=== PATIENT | male | born 1985 | race Caucasian/White ===

== ENCOUNTER 2020-07-19 17:33 | Emergency (ER) | payer OTHER ==
[2020-07-19 17:51] VITALS: BP 166/97; PULSE 90; BMI 35.2
[2020-07-19 17:52] VITALS: TEMP 98.4
== END 2020-07-19 21:04 | disposition home or self-care (01) ==
LOC: JERFT 17:33
DX: S61.411A Laceration without foreign body of right hand, initial encounter (principal)
CPT/HCPCS: 73130-TC-RT-FY; 99284-25